=== PATIENT | female | born 1980 ===

== ENCOUNTER 2017-06-15 19:04 | Inpatient (IN) | payer OTHER ==
[2017-06-15] MEDS ORDERED: Sodium Chloride 0.9% 1,000 ML IV STA (20:24)
--- NOTE | 2017-06-15 20:48 | ED PDOC ---
HPI: General Adult Time Seen by Provider: 06/15/17 19:53 Chief Complaint (Nursing): Flu-like Symptoms Chief Complaint (Provider): Flu-like symptoms History Per: Patient History/Exam Limitations: no limitations Onset/Duration Of Symptoms: Days (2 weeks. Fever x1 day) Current Symptoms Are (Timing): Still Present Severity: Mild Additional History Per: Patient Additional Complaint(s): 36 y/o female c/o fever for 1 day and cough, sinus congestion, generalized malaise, fatigue, and body aches for 2 weeks. Patient reports she has been feeling mild weakness for a few months. She then got a flu vaccine recently where the weakness became more severe that is associated with upper respiratory symptoms. Denies pain, SOB, swelling, or recent travel. (+) sick contact. PMD: [place] Past Medical History Reviewed: Historical Data, Nursing Documentation, Vital Signs Vital Signs: Last Vital Signs Temp 97.4 F L 06/18/17 08:00 Pulse 82 06/18/17 08:00 Resp 18 06/18/17 08:00 BP 110/77 06/18/17 08:00 Pulse Ox 98 06/18/17 08:00 - Surgical History Other surgeries: Surgical abdominal hernia. Finger tendon repair. cystocele repair. - Family History Family History: States: Unknown Family Hx - Home Medications Home Medications: Ambulatory Orders Medication Instructions Recorded Nitrofurantoin Macrocrystals 100 mg PO BID #20 cap 06/18/17 [Macrobid] Nitrofurantoin Macrocrystals 100 mg PO BID #20 cap 06/18/17 [Macrobid] Tamsulosin [Flomax] 0.4 mg PO DAILY #7 cap 06/18/17 Tamsulosin [Flomax] 0.4 mg PO DAILY #7 cap 06/18/17 - Allergies Allergies/Adverse Reactions: Allergies Allergy/AdvReac Type Severity Reaction Status Date / Time sulfamethoxazole Allergy RASH Verified 06/15/17 19:42 [From Bactrim] trimethoprim [From Bactrim] Allergy RASH Verified 06/15/17 19:42 Review of Systems ROS Statement: Except As Marked, All Systems Reviewed And Found Negative Constitutional: Positive for: Fever, Weakness, Malaise, Other (Body aches. No Pain) ENT: Positive for: Nose Congestion Respiratory: Positive for: Cough. Negative for: Shortness of Breath Physical Exam - Reviewed Nursing Documentation Reviewed: Yes Vital Signs Reviewed: Yes - Physical Exam Appears: Positive for: No Acute Distress (but tired appearing and febrile) Head Exam: Positive for: ATRAUMATIC, NORMOCEPHALIC Skin: Positive for: Warm, Dry Eye Exam: Positive for: EOMI, PERRL ENT: Negative for: Pharyngeal Erythema, Tonsillar Exudate Neck: Positive for: Painless ROM, Supple Cardiovascular/Chest: Positive for: Regular Rate, Rhythm, Chest Non Tender. Negative for: Murmur Respiratory: Positive for: Normal Breath Sounds. Negative for: Wheezing, Respiratory Distress Gastrointestinal/Abdominal: Positive for: Bowel Sounds, Soft. Negative for: Tenderness, Mass, Distended, Guarding Back: Positive for: Normal Inspection. Negative for: L CVA Tenderness, R CVA Tenderness Extremity: Positive for: Normal ROM. Negative for: Deformity Lymphatic: Negative for: Adenopathy Neurologic/Psych: Positive for: Alert. Negative for: Motor/Sensory Deficits - Laboratory Results Result Diagrams: 06/18/17 05:10 06/18/17 05:10 - ECG O2 Sat by Pulse Oximetry: 100 (RA) Pulse Ox Interpretation: Normal Medical Decision Making Medical Decision Making: Impression: * fever and weakness Plans: * Blood labs * CXR * Tylenol * Toradol * IV fluids * Serology * UA DDx: * Influenza vs Pneumonia vs [place] vs viral illness vs dehydration vs Pyelonephritis Labd demonstrate leukocytosis, elevated transaminases, and UA c/w UTI. Given pt has signs of early sepsis, UTI has likely progressed to pyelonephritis. Will CT for further evaluation and hospitalize for sepsis and pyelonephritis. MARGIE pt findings and plan of care. MARGIE Sarmiento COMPUTER SUPPORT TECHNICIAN for [facility]. Scribe Attestation: Documented by Nirmala wells, acting as a scribe for Hope Ng MD Provider Scribe Attestation: All medical record entries made by the Scribe were at my direction and personally dictated by me. I have reviewed the chart and agree that the record accurately reflects my personal performance of the history, physical exam, medical decision making, and the department course for this patient. I have also personally directed, reviewed, and agree with the discharge instructions and disposition. Disposition - Clinical Impression Clinical Impression: Pyelonephritis, Sepsis Counseled Patient/Family Regarding: Studies Performed, Diagnosis - Disposition Disposition Time: 22:00 Condition: FAIR - Pt Status Changed To: Hospital Disposition Of: Observation - POA Present On Arrival: None
[2017-06-15 20:56] LABS: VENOUS BLOOD GAS PCO2 32 mmHg (40-60); VENOUS BLOOD PH 7.51 (7.32-7.43)
[2017-06-15 21:09] LABS: BASO % 0.4 % (0.0-2.0); EOS % 0.4 % (0.0-4.0); HEMATOCRIT 32.1 % (34.0-47.0); LYMPH # 1.3 K/uL (1.0-4.3); LYMPH % 10.7 % (20.0-40.0); MEAN CELL VOLUME 92.7 fl (81.0-99.0); MEAN CORPUSCULAR HEMOGLOBIN 30.9 pg (27.0-31.0); MEAN CORPUSCULAR HGB CONC 33.4 g/dL (33.0-37.0); MEAN PLATELET VOLUME 9.8 fl (7.2-11.7); MONO # 0.8 K/uL (0.0-0.8); MONO % 6.8 % (0.0-10.0); NEUT # 9.9 K/uL (1.8-7.0); NEUT % 81.7 % (50.0-75.0); RED CELL DISTRIBUTION WIDTH 14.6 % (11.5-14.5); WHITE BLOOD COUNT 12.1 K/uL (4.8-10.8)
[2017-06-15 21:16] LABS: PARTIAL THROMBOPLASTIN TIME 30.4 Seconds (25.6-37.1)
[2017-06-15 21:22] LABS: ALB/GLOB RATIO 0.9 (1.0-2.1); ALKALINE PHOSPHATASE 317 U/L (38-126); ALT/SGPT 274 U/L (9-52); AST/SGOT 237 U/L (14-36); BILIRUBIN,TOTAL 0.9 mg/dl (0.2-1.3); BLOOD UREA NITROGEN 13 mg/dl (7-17); CALCIUM 9.4 mg/dL (8.4-10.2); CARBON DIOXIDE 25 mmol/L (22-30); CHLORIDE 96 mmol/L (98-107); GFR AFRICAN-AMERICAN > 60; GLUCOSE,RANDOM 127 mg/dL (65-105); MAGNESIUM 2.3 MG/DL (1.6-2.3); PHOSPHOROUS 1.9 mg/dl (2.5-4.5); POTASSIUM 3.4 MMOL/L (3.6-5.0); SODIUM 132 mmol/l (132-148); TOTAL PROTEIN 7.8 G/DL (6.3-8.2)
[2017-06-15 21:35] LABS: RBC URINE 15 /hpf (0-3); URINE BACTERIA MANY (<OCC); URINE BILIRUBIN NEGATIVE (NEGATIVE); URINE BLOOD MODERATE (NEGATIVE); URINE COLOR AMBER (YELLOW); URINE GLUCOSE (UA) NEG (Normal); URINE KETONE NEGATIVE (NEGATIVE); URINE LEUKOCYTE ESTERASE LARGE Leu/uL (Negative); URINE PROTEIN 30 mg/dL (NEGATIVE); WBC URINE 100 /hpf (0-5)
[2017-06-15] MEDS ORDERED: cefTRIAXone IV 1 gm in Dextros 50 ML IVPB STA (21:53)
[2017-06-15] MEDS ORDERED: cefTRIAXone IV 1 gm in Dextros 50 ML IVPB ONE (22:27)
[2017-06-15] MEDS: Sodium Chloride 0.9% 1,000 ML IV SCH (23:53)
[2017-06-16] MEDS: Sodium Chloride 0.9% 1,000 ML IV SCH ×4 (06:09→21:41)
[2017-06-16 07:26] LABS: BASO # 0.1 K/uL (0.0-0.2); BASO % 0.4 % (0.0-2.0); EOS % 0.2 % (0.0-4.0); HEMATOCRIT 31.4 % (34.0-47.0); LYMPH % 6.9 % (20.0-40.0); MEAN CELL VOLUME 92.1 fl (81.0-99.0); MEAN CORPUSCULAR HEMOGLOBIN 30.5 pg (27.0-31.0); MEAN CORPUSCULAR HGB CONC 33.2 g/dL (33.0-37.0); MEAN PLATELET VOLUME 10.1 fl (7.2-11.7); MONO % 6.9 % (0.0-10.0); NEUT # 12.3 K/uL (1.8-7.0); NEUT % 85.6 % (50.0-75.0); PLATELET COUNT 423 K/uL (130-400); RED CELL DISTRIBUTION WIDTH 15.3 % (11.5-14.5); WHITE BLOOD COUNT 14.4 K/uL (4.8-10.8)
[2017-06-16 07:35] LABS: ALB/GLOB RATIO 0.9 (1.0-2.1); ALKALINE PHOSPHATASE 280 U/L (38-126); ALT/SGPT 216 U/L (9-52); AST/SGOT 129 U/L (14-36); BILIRUBIN,TOTAL 1.2 mg/dl (0.2-1.3); BLOOD UREA NITROGEN 8 mg/dl (7-17); CARBON DIOXIDE 23 mmol/L (22-30); CHLORIDE 104 mmol/L (98-107); GFR AFRICAN-AMERICAN > 60; GLUCOSE,RANDOM 107 mg/dL (65-105); POTASSIUM 3.4 MMOL/L (3.6-5.0); SODIUM 137 mmol/l (132-148); TOTAL PROTEIN 7.1 G/DL (6.3-8.2)
[2017-06-16] MEDS ORDERED: Potassium Chloride 20 mEq ER Tab PO ONE (08:45)
--- NOTE | 2017-06-16 10:28 | CP.PCM.HP ---
History of Present Illness - History of Present Illness History of Present Illness: pt admitted for pyelonephritis and elevated lft. had flank pain x 2 wks fever x 1 day. has hx of uti. bw and ua noted. all c/s npending . pt w/ fever this am but no n/v/d. edson po. consults-uro/gi pending. hepatitis panel pending Present on Admission - Present on Admission Any Indicators Present on Admission: No Review of Systems - Constitutional Constitutional: As Per HPI, Fever - Genitourinary Genitourinary: As Per HPI, Dysuria, Flank Pain Past Patient History - Past Medical History & Family History Past Medical History?: Yes - Past Social History Smoking Status: Heavy Smoker > 10 Cigarettes Daily - CARDIAC Hx Cardiac Disorders: No - PULMONARY Hx Respiratory Disorders: No Other/Comment: current smoker, 1 pack a day. refuses smoking cessation - NEUROLOGICAL Hx Neurological Disorder: No - HEENT Hx HEENT Problems: No - RENAL Hx Chronic Kidney Disease: No - ENDOCRINE/METABOLIC Hx Endocrine Disorders: No - HEMATOLOGICAL/ONCOLOGICAL Hx Blood Disorders: No Hx AIDS: No Hx Hepatitis C: No Hx Human Immunodeficiency Virus (HIV): No - INTEGUMENTARY Hx Dermatological Problems: No - MUSCULOSKELETAL/RHEUMATOLOGICAL Hx Musculoskeletal Disorders: No Hx Falls: No - GASTROINTESTINAL Hx Gastrointestinal Disorders: No - GENITOURINARY/GYNECOLOGICAL Hx Genitourinary Disorders: Yes Hx Urinary Tract Infection: Yes - PSYCHIATRIC Hx Psychophysiologic Disorder: Yes Hx Anxiety: Yes (denies taking any home meds for anxiety) Hx Substance Use: No - SURGICAL HISTORY Hx Surgeries: Yes Hx Herniorrhaphy: Yes (October 2016) Hx Musculoskeletal Surgery: Yes (Pinky tendon repair to 2015) Other/Comment: cystocele repair due to reurring UTI 2011 - ANESTHESIA Hx Anesthesia: Yes Hx Anesthesia Reactions: No Meds Allergies/Adverse Reactions: Allergies Allergy/AdvReac Type Severity Reaction Status Date / Time sulfamethoxazole Allergy RASH Verified 06/15/17 19:42 [From Bactrim] trimethoprim [From Bactrim] Allergy RASH Verified 06/15/17 19:42 Physical Exam - Constitutional Appears: Well, Non-toxic, No Acute Distress - Head Exam Head Exam: ATRAUMATIC, NORMAL INSPECTION, NORMOCEPHALIC - Eye Exam Eye Exam: EOMI, Normal appearance, PERRL Pupil Exam: NORMAL ACCOMODATION, PERRL - ENT Exam ENT Exam: Mucous Membranes Moist, Normal Exam - Neck Exam Neck exam: Positive for: Normal Inspection - Respiratory Exam Respiratory Exam: Clear to Auscultation Bilateral, NORMAL BREATHING PATTERN - Cardiovascular Exam Cardiovascular Exam: REGULAR RHYTHM, RRR, +S1, +S2 - GI/Abdominal Exam GI & Abdominal Exam: Normal Bowel Sounds, Soft. absent: Tenderness - Extremities Exam Extremities exam: Positive for: full ROM, normal capillary refill, normal inspection, pedal pulses present - Back Exam Back exam: NORMAL INSPECTION - Neurological Exam Neurological exam: Alert, CN II-XII Intact, Normal Gait, Oriented x3, Reflexes Normal - Psychiatric Exam Psychiatric exam: Normal Affect, Normal Mood - Skin Skin Exam: Dry, Intact, Normal Color, Warm Results - Vital Signs Recent Vital Signs: Last Vital Signs Temp 102.9 F H 06/16/17 08:59 Pulse 104 H 06/16/17 08:51 Resp 20 06/16/17 08:51 BP 106/62 06/16/17 08:51 Pulse Ox 96 06/16/17 08:51 - Labs Result Diagrams: 06/16/17 05:30 06/16/17 05:30 Labs: Laboratory Results - last 24 hr 06/15/17 06/15/17 06/15/17 20:45 20:53 21:01 WBC 12.1 H RBC 3.47 L Hgb 10.7 L Hct 32.1 L MCV 92.7 MCH 30.9 MCHC 33.4 RDW 14.6 H Plt Count 415 H MPV 9.8 Neut % (Auto) 81.7 H Lymph % (Auto) 10.7 L [place] % (Auto) 6.8 Eos % (Auto) 0.4 Baso % (Auto) 0.4 Neut # 9.9 H Lymph # 1.3 [place] # 0.8 Eos # 0.0 Baso # 0.0 PT INR APTT pO2 25 L VBG pH 7.51 H VBG pCO2 32 L VBG HCO3 26.1 VBG Total CO2 26.5 VBG O2 Sat (Calc) 58.3 VBG Base Excess 3.0 H VBG Potassium 3.4 L Sodium 130.0 L Chloride 98.0 Glucose 134 H Lactate 1.1 FiO2 21.0 Potassium Carbon Dioxide Anion Gap BUN Creatinine Est GFR ( Amer) Est GFR (Non-Af Amer) Random Glucose Calcium Phosphorus Magnesium Total Bilirubin AST ALT Alkaline Phosphatase Total Creatine Kinase Total Protein Albumin Globulin Albumin/Globulin Ratio Venous Blood Potassium 3.4 L Urine Color Urine Clarity Urine pH Ur Specific [place] Urine Protein Urine Glucose (UA) Urine Ketones Urine Blood Urine Nitrate Urine Bilirubin Urine Urobilinogen Ur Leukocyte Esterase Urine RBC (Auto) Urine Microscopic WBC Ur Squamous Epith Cells Urine Bacteria Urine Yeast (Budding) Infectious [place] Assay Influenza Typ A,B (EIA) Grp A Beta Strep Ag Blood Type A POSITIVE Antibody Screen Negative BBK History Checked Patient has bt 06/15/17 06/15/17 06/15/17 21:01 21:01 21:01 WBC RBC Hgb Hct MCV MCH MCHC RDW Plt Count MPV Neut % (Auto) Lymph % (Auto) [place] % (Auto) Eos % (Auto) Baso % (Auto) Neut # Lymph # [place] # Eos # Baso # PT INR APTT pO2 VBG pH VBG pCO2 VBG HCO3 VBG Total CO2 VBG O2 Sat (Calc) VBG Base Excess VBG Potassium Sodium 132 Chloride 96 L Glucose Lactate FiO2 Potassium 3.4 L Carbon Dioxide 25 Anion Gap 14 BUN 13 Creatinine 0.8 Est GFR ( Amer) > 60 Est GFR (Non-Af Amer) > 60 Random Glucose 127 H Calcium 9.4 Phosphorus 1.9 L Magnesium 2.3 Total Bilirubin 0.9 AST 237 H ALT 274 H Alkaline Phosphatase 317 H Total Creatine Kinase 41 Total Protein 7.8 Albumin 3.7 Globulin 4.0 H Albumin/Globulin Ratio 0.9 L Venous Blood Potassium Urine Color Urine Clarity Urine pH Ur Specific [place] Urine Protein Urine Glucose (UA) Urine Ketones Urine Blood Urine Nitrate Urine Bilirubin Urine Urobilinogen Ur Leukocyte Esterase Urine RBC (Auto) Urine Microscopic WBC Ur Squamous Epith Cells Urine Bacteria Urine Yeast (Budding) Infectious [place] Assay Negative Influenza Typ A,B (EIA) Negative for flu a/b Grp A Beta Strep Ag Blood Type Antibody Screen BBK History Checked 06/15/17 06/15/17 06/15/17 21:01 21:01 21:01 WBC RBC Hgb Hct MCV MCH MCHC RDW Plt Count MPV Neut % (Auto) Lymph % (Auto) [place] % (Auto) Eos % (Auto) Baso % (Auto) Neut # Lymph # [place] # Eos # Baso # PT 14.6 H INR 1.3 H APTT 30.4 pO2 VBG pH VBG pCO2 VBG HCO3 VBG Total CO2 VBG O2 Sat (Calc) VBG Base Excess VBG Potassium Sodium Chloride Glucose Lactate FiO2 Potassium Carbon Dioxide Anion Gap BUN Creatinine Est GFR ( Amer) Est GFR (Non-Af Amer) Random Glucose Calcium Phosphorus Magnesium Total Bilirubin AST ALT Alkaline Phosphatase Total Creatine Kinase Total Protein Albumin Globulin Albumin/Globulin Ratio Venous Blood Potassium Urine Color [place] Urine Clarity Cloudy Urine pH 6.0 Ur Specific [place] 1.015 Urine Protein 30 Urine Glucose (UA) Neg Urine Ketones Negative Urine Blood Moderate Urine Nitrate Positive H Urine Bilirubin Negative Urine Urobilinogen 4.0 H Ur Leukocyte Esterase Large Urine RBC (Auto) 15 H Urine Microscopic WBC 100 H Ur Squamous Epith Cells 4 Urine Bacteria Many H Urine Yeast (Budding) Occ H Infectious [place] Assay Influenza Typ A,B (EIA) Grp A Beta Strep Ag Negative Blood Type Antibody Screen BBK History Checked 06/16/17 06/16/17 05:30 05:30 WBC 14.4 H RBC 3.41 L Hgb 10.4 L Hct 31.4 L MCV 92.1 MCH 30.5 MCHC 33.2 RDW 15.3 H Plt Count 423 H MPV 10.1 Neut % (Auto) 85.6 H Lymph % (Auto) 6.9 L [place] % (Auto) 6.9 Eos % (Auto) 0.2 Baso % (Auto) 0.4 Neut # 12.3 H Lymph # 1.0 [place] # 1.0 H Eos # 0.0 Baso # 0.1 PT INR APTT pO2 VBG pH VBG pCO2 VBG HCO3 VBG Total CO2 VBG O2 Sat (Calc) VBG Base Excess VBG Potassium Sodium 137 Chloride 104 Glucose Lactate FiO2 Potassium 3.4 L Carbon Dioxide 23 Anion Gap 13 BUN 8 Creatinine 0.8 Est GFR ( Amer) > 60 Est GFR (Non-Af Amer) > 60 Random Glucose 107 H Calcium 9.0 Phosphorus Magnesium Total Bilirubin 1.2 AST 129 H D ALT 216 H D Alkaline Phosphatase 280 H Total Creatine Kinase Total Protein 7.1 Albumin 3.4 L Globulin 3.7 Albumin/Globulin Ratio 0.9 L Venous Blood Potassium Urine Color Urine Clarity Urine pH Ur Specific [place] Urine Protein Urine Glucose (UA) Urine Ketones Urine Blood Urine Nitrate Urine Bilirubin Urine Urobilinogen Ur Leukocyte Esterase Urine RBC (Auto) Urine Microscopic WBC Ur Squamous Epith Cells Urine Bacteria Urine Yeast (Budding) Infectious [place] Assay Influenza Typ A,B (EIA) Grp A Beta Strep Ag Blood Type Antibody Screen BBK History Checked Assessment & Plan (1) Elevated LFTs Assessment and Plan: hepatitis panel pending gi ivf Status: Acute (2) DVT prophylaxis Assessment and Plan: scd and ae hose ambulation Status: Acute (3) Pyelonephritis Assessment and Plan: rocephin likely r/t pbstructing stone uro ivf pain and nausea control fever control f/u c/s Status: Acute (4) Sepsis Assessment and Plan: likey r/t urine source f/u blood nad urine c/s ivf mild sepsis Status: Acute Decision To Admit - Pt Status Changed To: Hospital Disposition Of: Observation - . Bed Request Type: Med/Surg Admitting Physician: Williams Bañuelos
[2017-06-16 10:39] LABS: EOSINOPHIL 1 % (0-7); NEUTROPHIL 85 % (42-75); TOTAL CELLS COUNTED 100
[2017-06-16 10:40] LABS: LARGE PLATELETS PRESENT
--- NOTE | 2017-06-16 13:23 | RAD ---
HISTORY: cough fever COMPARISON: No prior. TECHNIQUE: Chest PA and lateral FINDINGS: LUNGS: No active pulmonary disease. PLEURA: No significant pleural effusion identified. No pneumothorax apparent. CARDIOVASCULAR: Normal. OSSEOUS STRUCTURES: No significant abnormalities. VISUALIZED UPPER ABDOMEN: Normal. OTHER FINDINGS: None. IMPRESSION: No active disease.
--- NOTE | 2017-06-16 13:29 | CP.PCM.PN ---
Subjective - Date & Time of Evaluation Date of Evaluation: 06/16/17 Time of Evaluation: 13:15 - Subjective Subjective: 36 year old female who presented with clinical pylonephritis,who is on antibiotics and afrible was found to have small Bilat renal calculi on CT with out evidence of hydro. no cva tenderness A.Pylonephritis,Suggest Continue antibiotics,adjust as per sensitivies,pt should have outpatient evall for lithotrpsy Thanks Dr aragon covering for DrCacace. Objective - Vital Signs/Intake and Output Vital Signs (last 24 hours): Temp Pulse Resp BP Pulse Ox 102.9 F H 104 H 20 106/62 96 06/16/17 08:59 06/16/17 08:51 06/16/17 08:51 06/16/17 08:51 06/16/17 08:51 - Medications Medications: Current Medications Acetaminophen (Tylenol 325mg Tab) 650 mg PO Q4 PRN PRN Reason: fever/pain 4-7 Last Admin: 06/16/17 08:59 Dose: 650 mg Sodium Chloride (Sodium Chloride 0.9%) 1,000 mls @ 150 mls/hr IV .Q6H40M LYLE Stop: 06/16/17 22:32 Last Admin: 06/16/17 06:09 Dose: 150 mls/hr Ceftriaxone Sodium (Rocephin Iv 1 Gm Duplex) 50 mls @ 50 mls/hr IVPB DAILY@ 2200 LYLE PRN Reason: Protocol Ketorolac Tromethamine (Toradol) 30 mg IVP Q6 PRN PRN Reason: Pain, severe (8-10) Ondansetron HCl (Zofran Inj) 4 mg IVP Q6 PRN PRN Reason: Nausea/Vomiting - Labs Labs: 06/16/17 05:30 06/16/17 05:30 PT 14.6 Seconds (9.8-13.1) H 06/15/17 21:01 INR 1.3 (0.9-1.2) H 06/15/17 21:01 APTT 30.4 Seconds (25.6-37.1) 06/15/17 21:01
--- NOTE | 2017-06-16 14:12 | CT ---
PROCEDURE: CT Abdomen and Pelvis without intravenous contrast HISTORY: pyelonephritis COMPARISON: None. TECHNIQUE: Technique. Contrast Dose: Radiation dose: Total exam DLP = 1047 mGy-cm. This CT exam was performed using one or more of the following dose reduction techniques: Automated exposure control, adjustment of the mA and/or kV according to patient size, and/or use of iterative reconstruction technique. FINDINGS: LOWER THORAX: Unremarkable. LIVER: Unremarkable. No gross lesion or ductal dilatation. GALLBLADDER AND BILE DUCTS: Unremarkable. PANCREAS: Unremarkable. No gross lesion or ductal dilatation. SPLEEN: Unremarkable. ADRENALS: Unremarkable. No mass. KIDNEYS AND URETERS: 3 millimeter proximal left ureteral calculus with mild to moderate left hydroureteronephrosis. Bilateral small nonobstructive renal calculi. VASCULATURE: Unremarkable. No aortic aneurysm. BOWEL: Unremarkable. No obstruction. No gross mural thickening. APPENDIX: Unremarkable. Normal appendix. PERITONEUM: Unremarkable. No free fluid. No free air. LYMPH NODES: Multiple nonspecific retroperitoneal lymph nodes are identified. BLADDER: Unremarkable. REPRODUCTIVE: Unremarkable. BONES: No acute fracture. OTHER FINDINGS: None. IMPRESSION: 3 millimeter proximal left ureteral calculus with mild to moderate left hydroureteronephrosis. Bilateral small nonobstructive renal calculi.Multiple nonspecific mildly enlarged retroperitoneal lymph nodes are identified.
[2017-06-16] MEDS: cefTRIAXone IV 1 gm in Dextros 50 ML IVPB SCH (21:28)
--- NOTE | 2017-06-17 05:17 | CON ---
DATE: 06/16/2017 REFERRED BY: Dr. Bañuelos the patient for him. HISTORY OF PRESENT ILLNESS: This is a very pleasant 36-year-old young lady who was admitted yesterday with a 2-week history of fever, chills, and generalized malaise and fatigue, who has been treated apparently for urinary source of infection, who was incidentally also found to have elevated hepatic enzymes. Patient denies any risk factors for liver disease, having never received a blood transfusion. Denies any drug use in the past other than smoking marijuana occasionally. She does have one tattoo, she says it was done with a clean blade and she has not been promiscuous. She has no known history of liver disease, but states that she had an ultrasound done recently as she does work at [employer], it reveals she had a fatty liver. MEDICATIONS: She was on no medications at home. ALLERGIES: NO KNOWN DRUG ALLERGIES. PAST MEDICAL HISTORY: Essentially unremarkable. PAST SURGICAL HISTORY: She had one vaginal delivery. She had a small ventral hernia repair back in 10/2016. She also had some small surgery on her right hand on the pinky finger. FAMILY HISTORY: According to her and her mom, who was present, there is no history of liver disease. SOCIAL HISTORY: She does smoke up to a pack a day of cigarettes. She does have some alcohol, although the last couple of weeks, she has not been drinking because she had been feeling ill and denies any drug use. She is employed at [employer]. PHYSICAL EXAMINATION: GENERAL: Well-developed, well-nourished, black woman, awake, alert, and oriented x3, in no acute distress. States she feels better today than she did upon admission yesterday. VITAL SIGNS: Presently stable, although she was febrile at 08:51 this morning to 102.9. LABORATORY DATA: Her white count yesterday was 12.1, today it is up to 14.4; hemoglobin is stable at 10.4, albeit slightly anemic with a platelet count of 423. She has neutrophils of 85.6. INR is 1.3. SMA-7 is unremarkable. Her LFTs; bilirubin has been normal. Her AST yesterday was 237, today it is 129. Her ALT was 274, it is down to 216. Alk phos was 317, today it is 280. Other LFTs are unremarkable. IMPRESSION AND PLAN: A 36-year-old overweight woman who is referred with abnormal LFTs, probably multifactorial, so she has an element of underlying fatty liver disease which is causing elevation of her hepatic enzymes. She also has an acute infection going on most likely of urinary tract source and that certainly can cause an elevation in the enzymes, although they have improved as she has clinically in the last 24 hours. Certainly, a viral syndrome can cause this as well and a hepatitis panel has been ordered. We will await for those results. In the meantime, we will simply follow up on her CAT scan that was done as well repeat her GGT along with the LFTs tomorrow and I will follow along with you. Thank you very much for this referral. Weston Sawyer MD
[2017-06-17] MEDS: Sodium Chloride 0.9% 1,000 ML IV SCH (05:46)
[2017-06-17 06:52] LABS: BASO % 0.3 % (0.0-2.0); EOS # 0.1 K/uL (0.0-0.7); EOS % 0.6 % (0.0-4.0); HEMATOCRIT 28.9 % (34.0-47.0); LYMPH # 1.5 K/uL (1.0-4.3); LYMPH % 12.6 % (20.0-40.0); MEAN CELL VOLUME 94.1 fl (81.0-99.0); MEAN CORPUSCULAR HEMOGLOBIN 30.5 pg (27.0-31.0); MEAN CORPUSCULAR HGB CONC 32.4 g/dL (33.0-37.0); MEAN PLATELET VOLUME 10.2 fl (7.2-11.7); MONO # 0.9 K/uL (0.0-0.8); MONO % 7.2 % (0.0-10.0); NEUT # 9.5 K/uL (1.8-7.0); NEUT % 79.3 % (50.0-75.0); RED CELL DISTRIBUTION WIDTH 15.2 % (11.5-14.5)
[2017-06-17 07:02] LABS: ALB/GLOB RATIO 0.9 (1.0-2.1); ALKALINE PHOSPHATASE 202 U/L (38-126); ALT/SGPT 143 U/L (9-52); AST/SGOT 57 U/L (14-36); BILIRUBIN,TOTAL 0.3 mg/dl (0.2-1.3); BLOOD UREA NITROGEN 5 mg/dl (7-17); CALCIUM 8.8 mg/dL (8.4-10.2); CARBON DIOXIDE 22 mmol/L (22-30); CHLORIDE 108 mmol/L (98-107); GFR AFRICAN-AMERICAN > 60; GLUCOSE,RANDOM 96 mg/dL (65-105); LIPASE 88 U/L (23-300); POTASSIUM 3.5 MMOL/L (3.6-5.0); SODIUM 139 mmol/l (132-148); TOTAL PROTEIN 6.3 G/DL (6.3-8.2)
[2017-06-17] MEDS ORDERED: Potassium Chloride 20 mEq ER Tab PO ONE (09:30)
--- NOTE | 2017-06-17 10:36 | CP.PCM.PN ---
Subjective - Date & Time of Evaluation Date of Evaluation: 06/17/17 Time of Evaluation: 10:28 - Subjective Subjective: Patient Remains afibrile ct report indicates 3mm proxinal ureteral calculi,with some hydro. Urine c&s + wbc has decreased. Suggest continue antibiotics, add flomax to facilate passage of stone strain all urine for stone. Alyse Objective - Vital Signs/Intake and Output Vital Signs (last 24 hours): Temp Pulse Resp BP Pulse Ox 99 F 81 20 109/70 96 06/17/17 08:24 06/17/17 08:24 06/17/17 08:24 06/17/17 08:24 06/17/17 08:24 - Medications Medications: Current Medications Acetaminophen (Tylenol 325mg Tab) 650 mg PO Q4 PRN PRN Reason: fever/pain 4-7 Last Admin: 06/16/17 16:01 Dose: 650 mg Ceftriaxone Sodium (Rocephin Iv 1 Gm Duplex) 50 mls @ 50 mls/hr IVPB DAILY@ 2200 LYLE PRN Reason: Protocol Last Admin: 06/16/17 21:28 Dose: 50 mls/hr Ketorolac Tromethamine (Toradol) 30 mg IVP Q6 PRN PRN Reason: Pain, severe (8-10) Ondansetron HCl (Zofran Inj) 4 mg IVP Q6 PRN PRN Reason: Nausea/Vomiting - Labs Labs: 06/17/17 05:30 06/17/17 05:30 PT 14.6 Seconds (9.8-13.1) H 06/15/17 21:01 INR 1.3 (0.9-1.2) H 06/15/17 21:01 APTT 30.4 Seconds (25.6-37.1) 06/15/17 21:01
--- NOTE | 2017-06-17 11:28 | CP.PCM.PN ---
Subjective - Date & Time of Evaluation Date of Evaluation: 06/17/17 Time of Evaluation: 11:28 - Subjective Subjective: doing well, no complaints. no f/c, n/v/d. edson po. lft trending down per uro-dc tomorrrow after urine c/s finalized. Objective - Vital Signs/Intake and Output Vital Signs (last 24 hours): Temp Pulse Resp BP Pulse Ox 99 F 81 20 109/70 96 06/17/17 08:24 06/17/17 08:24 06/17/17 08:24 06/17/17 08:24 06/17/17 08:24 - Medications Medications: Current Medications Acetaminophen (Tylenol 325mg Tab) 650 mg PO Q4 PRN PRN Reason: fever/pain 4-7 Last Admin: 06/16/17 16:01 Dose: 650 mg Ceftriaxone Sodium (Rocephin Iv 1 Gm Duplex) 50 mls @ 50 mls/hr IVPB DAILY@ 2200 LYLE PRN Reason: Protocol Last Admin: 06/16/17 21:28 Dose: 50 mls/hr Ketorolac Tromethamine (Toradol) 30 mg IVP Q6 PRN PRN Reason: Pain, severe (8-10) Ondansetron HCl (Zofran Inj) 4 mg IVP Q6 PRN PRN Reason: Nausea/Vomiting Tamsulosin HCl (Flomax) 0.4 mg PO DAILY [facility] - Labs Labs: 06/17/17 05:30 06/17/17 05:30 PT 14.6 Seconds (9.8-13.1) H 06/15/17 21:01 INR 1.3 (0.9-1.2) H 06/15/17 21:01 APTT 30.4 Seconds (25.6-37.1) 06/15/17 21:01 - Constitutional Appears: Well, Non-toxic, No Acute Distress - Head Exam Head Exam: ATRAUMATIC, NORMAL INSPECTION, NORMOCEPHALIC - Eye Exam Eye Exam: EOMI, Normal appearance, PERRL Pupil Exam: NORMAL ACCOMODATION, PERRL - ENT Exam ENT Exam: Mucous Membranes Moist, Normal Exam - Neck Exam Neck Exam: Full ROM, Normal Inspection. absent: Lymphadenopathy - Respiratory Exam Respiratory Exam: Clear to Ausculation Bilateral, NORMAL BREATHING PATTERN - Cardiovascular Exam Cardiovascular Exam: REGULAR RHYTHM, RRR, +S1, +S2. absent: Murmur - GI/Abdominal Exam GI & Abdominal Exam: Soft, Normal Bowel Sounds. absent: Tenderness - Extremities Exam Extremities Exam: Full ROM, Normal Capillary Refill, Normal Inspection. absent : Joint Swelling, Pedal Edema - Back Exam Back Exam: NORMAL INSPECTION - Neurological Exam Neurological Exam: Alert, Awake, CN II-XII Intact, Normal Gait, Oriented x3 - Psychiatric Exam Psychiatric exam: Normal Affect, Normal Mood - Skin Skin Exam: Dry, Intact, Normal Color, Warm Assessment and Plan (1) Elevated LFTs Assessment & Plan: trending down gi hep panel pending cont to monitor hydration Status: Acute (2) DVT prophylaxis Assessment & Plan: scd nad ae hose ambulation Status: Acute (3) Pyelonephritis Assessment & Plan: rocephin f/u c/s uro ivf fever and pain control Status: Acute (4) Sepsis Assessment & Plan: doing well, improving bc thus far negative Status: Acute
[2017-06-17] MEDS: cefTRIAXone IV 1 gm in Dextros 50 ML IVPB SCH (21:40)
--- NOTE | 2017-06-17 22:46 | CP.PCM.PN ---
Subjective - Date & Time of Evaluation Date of Evaluation: 06/17/17 Time of Evaluation: 22:43 - Subjective Subjective: Discussed with hira hartman,pt should remain present antibiotics untill sensitivites are known. If there is a oral sensitive antibiotics pt may be switched and if afribile and asymtomatic discharged on po antibiotica and flomax ,and follow up in our officce sunday by apptAzael Cullen Objective - Vital Signs/Intake and Output Vital Signs (last 24 hours): Temp Pulse Resp BP Pulse Ox 98.4 F 81 19 116/67 98 06/17/17 16:21 06/17/17 16:21 06/17/17 16:21 06/17/17 16:21 06/17/17 16:21 - Medications Medications: Current Medications Acetaminophen (Tylenol 325mg Tab) 650 mg PO Q4 PRN PRN Reason: fever/pain 4-7 Last Admin: 06/16/17 16:01 Dose: 650 mg Ceftriaxone Sodium (Rocephin Iv 1 Gm Duplex) 50 mls @ 50 mls/hr IVPB DAILY@ 2200 LYLE PRN Reason: Protocol Last Admin: 06/17/17 21:40 Dose: 50 mls/hr Ketorolac Tromethamine (Toradol) 30 mg IVP Q6 PRN PRN Reason: Pain, severe (8-10) Ondansetron HCl (Zofran Inj) 4 mg IVP Q6 PRN PRN Reason: Nausea/Vomiting Tamsulosin HCl (Flomax) 0.4 mg PO DAILY [facility] Last Admin: 06/17/17 16:47 Dose: 0.4 mg - Labs Labs: 06/17/17 05:30 06/17/17 05:30 PT 14.6 Seconds (9.8-13.1) H 06/15/17 21:01 INR 1.3 (0.9-1.2) H 06/15/17 21:01 APTT 30.4 Seconds (25.6-37.1) 06/15/17 21:01
--- NOTE | 2017-06-18 02:29 | CON ---
DATE: 06/15/2017 CHIEF COMPLAINT: Fever and malaise. HISTORY OF PRESENT ILLNESS: The patient was admitted to the hospital because of a week of malaise, fever and feeling bad. She was worked up and found to have a positive urinalysis and fever, subsequently the patient underwent CAT scan which shows bilateral renal calculi and a nonobstructing upper ureteral calculi 3-mm in size. The patient was then placed on IV antibiotics and has been improved. Presently, she is afebrile. White count has gone down from 14,000 to 12,000. REVIEW OF SYSTEMS: RESPIRATORY: The patient has no respiratory complaints. GASTROINTESTINAL: The patient has no nauseousness, vomiting or abdominal pain. GENITOURINARY: The patient gives a history of some dysuria and vague back pain with no significant renal colic or localization. NEUROLOGIC: History is noncontributory. MUSCULOSKELETAL: History is noncontributory. 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 She neither smokes or drinks. PHYSICAL EXAMINATION: VITAL SIGNS: Right now, the patient is afebrile. HEAD, EARS, EYES, NOSE, AND THROAT: Within normal limits. NECK: Supple. There is no bruits, no evidence of masses. CHEST: Clear bilaterally with no rales or rhonchi. HEART: Normal sinus rhythm. There is no murmur. ABDOMEN: Soft, nontender. There is no CVA tenderness or anterior abdominal tenderness. EXTREMITIES: Normal. VAGINAL EXAMINATION: Declined by the patient. RECTAL: Declined by the patient. NEUROLOGIC: Negative. IMPRESSION: Multiple renal calculi and single ureteral calculi 3 mm in size. Suggest the following: Since the patient has become afebrile with the antibiotics, suggest she should be started on Flomax 0.4 mg daily and have all her urine strained for stone. Once urine cultures are known, if there is an oral alternative, she maybe discharged on oral antibiotics if sensitivities indicate that these antibiotics would work. If not, she should remain on IV antibiotics until full 7-10 day course of medications has been completed. Urine should be strained for stone. The patient should follow up within one week in the Urology Office, and further evaluation to see if she has passed the stones should be carried out. We have conveyed these medications to the nurse practitioner, Guillermina. Flynn Cullen MD [facility] # [id number]
[2017-06-18 06:14] LABS: ALKALINE PHOSPHATASE 162 U/L (38-126); ALT/SGPT 145 U/L (9-52); AST/SGOT 72 U/L (14-36); BILIRUBIN,TOTAL 0.1 mg/dl (0.2-1.3); BLOOD UREA NITROGEN 5 mg/dl (7-17); CARBON DIOXIDE 24 mmol/L (22-30); CHLORIDE 111 mmol/L (98-107); GFR AFRICAN-AMERICAN > 60; GLUCOSE,RANDOM 99 mg/dL (65-105); POTASSIUM 3.6 MMOL/L (3.6-5.0); SODIUM 142 mmol/l (132-148); TOTAL PROTEIN 6.3 G/DL (6.3-8.2)
[2017-06-18 06:23] LABS: BASO % 0.3 % (0.0-2.0); EOS # 0.2 K/uL (0.0-0.7); EOS % 2.1 % (0.0-4.0); HEMATOCRIT 27.8 % (34.0-47.0); LYMPH # 1.6 K/uL (1.0-4.3); LYMPH % 22.8 % (20.0-40.0); MEAN CELL VOLUME 94.1 fl (81.0-99.0); MEAN CORPUSCULAR HEMOGLOBIN 30.5 pg (27.0-31.0); MEAN CORPUSCULAR HGB CONC 32.5 g/dL (33.0-37.0); MEAN PLATELET VOLUME 9.9 fl (7.2-11.7); MONO # 0.6 K/uL (0.0-0.8); NEUT # 4.8 K/uL (1.8-7.0); NEUT % 66.8 % (50.0-75.0); NRBC % 0.1 % (0.0-0.0); RED CELL DISTRIBUTION WIDTH 15.1 % (11.5-14.5); WHITE BLOOD COUNT 7.2 K/uL (4.8-10.8)
[2017-06-18 06:29] LABS: ALB/GLOB RATIO 0.9 (1.0-2.1)
--- NOTE | 2017-06-18 07:21 | CP.PCM.PN ---
Subjective - Date & Time of Evaluation Date of Evaluation: 06/18/17 Time of Evaluation: 07:20 - Subjective Subjective: pt w/o complaints. nof /c n/v/d. hep panel pending. final urine c/s pending. gram - rods noted. pt very anxious to be dc home. edson po Objective - Vital Signs/Intake and Output Vital Signs (last 24 hours): Temp Pulse Resp BP Pulse Ox 98 F 80 20 111/71 99 06/18/17 00:19 06/18/17 00:19 06/18/17 00:19 06/18/17 00:19 06/18/17 00:19 - Medications Medications: Current Medications Acetaminophen (Tylenol 325mg Tab) 650 mg PO Q4 PRN PRN Reason: fever/pain 4-7 Last Admin: 06/16/17 16:01 Dose: 650 mg Ceftriaxone Sodium (Rocephin Iv 1 Gm Duplex) 50 mls @ 50 mls/hr IVPB DAILY@ 2200 LYLE PRN Reason: Protocol Last Admin: 06/17/17 21:40 Dose: 50 mls/hr Ketorolac Tromethamine (Toradol) 30 mg IVP Q6 PRN PRN Reason: Pain, severe (8-10) Ondansetron HCl (Zofran Inj) 4 mg IVP Q6 PRN PRN Reason: Nausea/Vomiting Tamsulosin HCl (Flomax) 0.4 mg PO DAILY [facility] Last Admin: 06/17/17 16:47 Dose: 0.4 mg - Labs Labs: 06/18/17 05:10 06/18/17 05:10 PT 14.6 Seconds (9.8-13.1) H 06/15/17 21:01 INR 1.3 (0.9-1.2) H 06/15/17 21:01 APTT 30.4 Seconds (25.6-37.1) 06/15/17 21:01 - Constitutional Appears: Well, Non-toxic, No Acute Distress - Head Exam Head Exam: ATRAUMATIC, NORMAL INSPECTION, NORMOCEPHALIC - Eye Exam Eye Exam: EOMI, Normal appearance, PERRL Pupil Exam: NORMAL ACCOMODATION, PERRL - ENT Exam ENT Exam: Mucous Membranes Moist, Normal Exam - Neck Exam Neck Exam: Full ROM, Normal Inspection. absent: Lymphadenopathy - Respiratory Exam Respiratory Exam: Clear to Ausculation Bilateral, NORMAL BREATHING PATTERN - Cardiovascular Exam Cardiovascular Exam: REGULAR RHYTHM, RRR, +S1, +S2. absent: Murmur - GI/Abdominal Exam GI & Abdominal Exam: Soft, Normal Bowel Sounds. absent: Tenderness - Extremities Exam Extremities Exam: Full ROM, Normal Capillary Refill, Normal Inspection. absent : Joint Swelling, Pedal Edema - Back Exam Back Exam: NORMAL INSPECTION - Neurological Exam Neurological Exam: Alert, Awake, CN II-XII Intact, Normal Gait, Oriented x3 - Psychiatric Exam Psychiatric exam: Normal Affect, Normal Mood - Skin Skin Exam: Dry, Intact, Normal Color, Warm Assessment and Plan (1) Elevated LFTs Status: Acute (2) DVT prophylaxis Status: Acute (3) Pyelonephritis Status: Acute (4) Sepsis Status: Acute
[2017-06-18 08:02] VITALS: BP 110/77; PULSE 82; RESP 18; TEMP 97.4
--- NOTE | 2017-06-18 11:34 | CP.PCM.DIS ---
Provider - Provider Date of Admission: 06/16/17 19:35 Attending physician: Williams Bañuelos MD Time Spent in preparation of Discharge (in minutes): 5 Diagnosis - Discharge Diagnosis (1) Elevated LFTs Status: Acute (2) DVT prophylaxis Status: Acute (3) Pyelonephritis Status: Acute (4) Sepsis Status: Acute Hospital Course - Lab Results Lab Results: Micro Results 06/15/17 21:01 Urine Urine Culture - Final Escherichia Coli 06/15/17 20:45 Blood-Venous Blood Culture - Preliminary NO GROWTH AFTER 48 HOURS 06/15/17 20:55 Blood-Venous Blood Culture - Preliminary NO GROWTH AFTER 48 HOURS 06/15/17 21:01 Throat Group A Strep Throat Culture - Final NO BETA STREP GROUP A ISOLATED. Most Recent Lab Values WBC 7.2 K/uL (4.8-10.8) 06/18/17 05:10 RBC 2.96 Mil/uL (3.80-5.20) L 06/18/17 05:10 Hgb 9.0 g/dL (12.0-16.0) L 06/18/17 05:10 Hct 27.8 % (34.0-47.0) L 06/18/17 05:10 MCV 94.1 fl (81.0-99.0) 06/18/17 05:10 MCH 30.5 pg (27.0-31.0) 06/18/17 05:10 MCHC 32.5 g/dL (33.0-37.0) L 06/18/17 05:10 RDW 15.1 % (11.5-14.5) H 06/18/17 05:10 Plt Count 365 K/uL (130-400) 06/18/17 05:10 MPV 9.9 fl (7.2-11.7) 06/18/17 05:10 Neut % (Auto) 66.8 % (50.0-75.0) 06/18/17 05:10 Lymph % (Auto) 22.8 % (20.0-40.0) 06/18/17 05:10 Gibson % (Auto) 8.0 % (0.0-10.0) 06/18/17 05:10 Eos % (Auto) 2.1 % (0.0-4.0) 06/18/17 05:10 Baso % (Auto) 0.3 % (0.0-2.0) 06/18/17 05:10 Neut # 4.8 K/uL (1.8-7.0) 06/18/17 05:10 Lymph # 1.6 K/uL (1.0-4.3) 06/18/17 05:10 Gibson # 0.6 K/uL (0.0-0.8) 06/18/17 05:10 Eos # 0.2 K/uL (0.0-0.7) 06/18/17 05:10 Baso # 0.0 K/uL (0.0-0.2) 06/18/17 05:10 Neutrophils % (Manual) 85 % (42-75) H 06/16/17 05:30 Band Neutrophils % 2 % (0-2) 06/16/17 05:30 Lymphocytes % (Manual) 7 % (20-50) L 06/16/17 05:30 Monocytes % (Manual) 5 % (0-10) 06/16/17 05:30 Eosinophils % (Manual) 1 % (0-7) 06/16/17 05:30 Platelet Estimate Normal (NORMAL) 06/16/17 05:30 Large Platelets Present 06/16/17 05:30 Hypochromasia (manual) Slight 06/16/17 05:30 Poikilocytosis (manual Slight 06/16/17 05:30 Anisocytosis (manual) Moderate 06/16/17 05:30 Tear Drop Cells Slight 06/16/17 05:30 PT 14.6 Seconds (9.8-13.1) H 06/15/17 21:01 INR 1.3 (0.9-1.2) H 06/15/17 21:01 APTT 30.4 Seconds (25.6-37.1) 06/15/17 21:01 pO2 25 mm/Hg (30-55) L 06/15/17 20:53 VBG pH 7.51 (7.32-7.43) H 06/15/17 20:53 VBG pCO2 32 mmHg (40-60) L 06/15/17 20:53 VBG HCO3 26.1 mmol/L 06/15/17 20:53 VBG Total CO2 26.5 mmol/L (22-28) 06/15/17 20:53 VBG O2 Sat (Calc) 58.3 % (40-65) 06/15/17 20:53 VBG Base Excess 3.0 mmol/L (0.0-2.0) H 06/15/17 20:53 VBG Potassium 3.4 mmol/L (3.6-5.2) L 06/15/17 20:53 Sodium 130.0 mmol/L (132-148) L 06/15/17 20:53 Chloride 98.0 mmol/L (98-107) 06/15/17 20:53 Glucose 134 mg/dL (65-105) H 06/15/17 20:53 Lactate 1.1 mmol/L (0.7-2.1) 06/15/17 20:53 FiO2 21.0 % 06/15/17 20:53 Sodium 142 mmol/l (132-148) 06/18/17 05:10 Potassium 3.6 MMOL/L (3.6-5.0) 06/18/17 05:10 Chloride 111 mmol/L (98-107) H 06/18/17 05:10 Carbon Dioxide 24 mmol/L (22-30) 06/18/17 05:10 Anion Gap 11 (10-20) 06/18/17 05:10 BUN 5 mg/dl (7-17) L 06/18/17 05:10 Creatinine 0.6 mg/dL (0.7-1.2) L 06/18/17 05:10 Est GFR ( Amer) > 60 06/18/17 05:10 Est GFR (Non-Af Amer) > 60 06/18/17 05:10 Random Glucose 99 mg/dL (65-105) 06/18/17 05:10 Calcium 9.0 mg/dL (8.4-10.2) 06/18/17 05:10 Phosphorus 1.9 mg/dl (2.5-4.5) L 06/15/17 21:01 Magnesium 2.3 MG/DL (1.6-2.3) 06/15/17 21:01 Total Bilirubin 0.1 mg/dl (0.2-1.3) L 06/18/17 05:10 GGT 281 U/L (8-78) H 06/17/17 05:30 AST 72 U/L (14-36) H D 06/18/17 05:10 ALT 145 U/L (9-52) H 06/18/17 05:10 Alkaline Phosphatase 162 U/L (38-126) H 06/18/17 05:10 Total Creatine Kinase 41 U/L (30-135) 06/15/17 21:01 Total Protein 6.3 G/DL (6.3-8.2) 06/18/17 05:10 Albumin 2.9 g/dL (3.5-5.0) L 06/18/17 05:10 Globulin 3.4 gm/dL (2.2-3.9) 06/18/17 05:10 Albumin/Globulin Ratio 0.9 (1.0-2.1) L 06/18/17 05:10 Lipase 88 U/L (23-300) 06/17/17 05:30 Venous Blood Potassium 3.4 mmol/L (3.6-5.2) L 06/15/17 20:53 Urine Color Mary Jo (YELLOW) 06/15/17 21:01 Urine Clarity Cloudy (Clear) 06/15/17 21:01 Urine pH 6.0 (5.0-8.0) 06/15/17 21:01 Ur Specific Amma 1.015 (1.003-1.030) 06/15/17 21:01 Urine Protein 30 mg/dL (NEGATIVE) 06/15/17 21:01 Urine Glucose (UA) Neg mg/dL (Normal) 06/15/17 21:01 Urine Ketones Negative mg/dL (NEGATIVE) 06/15/17 21:01 Urine Blood Moderate (NEGATIVE) 06/15/17 21:01 Urine Nitrate Positive (NEGATIVE) H 06/15/17 21:01 Urine Bilirubin Negative (NEGATIVE) 06/15/17 21:01 Urine Urobilinogen 4.0 mg/dL (0.2-1.0) H 06/15/17 21:01 Ur Leukocyte Esterase Large Lianet/uL (Negative) 06/15/17 21:01 Urine RBC (Auto) 15 /hpf (0-3) H 06/15/17 21:01 Urine Microscopic WBC 100 /hpf (0-5) H 06/15/17 21:01 Ur Squamous Epith Cells 4 /hpf (0-5) 06/15/17 21:01 Urine Bacteria Many (<OCC) H 06/15/17 21:01 Urine Yeast (Budding) Occ /hpf (NEGATIVE) H 06/15/17 21:01 Hepatitis A IgM Ab Negative (NEGATIVE) 06/16/17 05:30 Hep Bs Antigen Negative (NEGATIVE) 06/16/17 05:30 Hep B Core IgM Ab Negative (NEGATIVE) 06/16/17 05:30 Hepatitis C Antibody Negative (NEGATIVE) 06/16/17 05:30 Infectious Gibson Assay Negative (NEGATIVE) 06/15/17 21:01 Influenza Typ A,B (EIA) Negative for flu a/b (NEGATIVE) 06/15/17 21:01 Grp A Beta Strep Ag Negative (NEGATIVE) 06/15/17 21:01 Blood Type A POSITIVE 06/15/17 20:45 Antibody Screen Negative 06/15/17 20:45 BBK History Checked Patient has bt 06/15/17 20:45 Discharge Exam - Head Exam Head Exam: ATRAUMATIC, NORMAL INSPECTION, NORMOCEPHALIC - Eye Exam Eye Exam: EOMI, Normal appearance, PERRL Pupil Exam: NORMAL ACCOMODATION, PERRL - Respiratory Exam Respiratory Exam: Clear to PA & Lateral, NORMAL BREATHING PATTERN, UNREMARKABLE - Cardiovascular Exam Cardiovascular Exam: REGULAR RHYTHM, RRR, +S1, +S2 - GI/Abdominal Exam GI & Abdominal Exam: Normal Bowel Sounds, Soft, Unremarkable - Extremities Exam Extremities exam: full ROM, normal capillary refill, normal inspection, pedal pulses present - Neurological Exam Neurological exam: Alert, CN II-XII Intact, Normal Gait, Oriented x3, Reflexes Normal - Psychiatric Exam Psychiatric exam: Normal Affect, Normal Mood - Skin Skin Exam: Dry, Intact, Normal Color, Warm Discharge Plan - Discharge Medications Prescriptions: Nitrofurantoin Macrocrystals [Macrobid] 100 mg PO BID #20 cap Nitrofurantoin Macrocrystals [Macrobid] 100 mg PO BID #20 cap Tamsulosin [Flomax] 0.4 mg PO DAILY #7 cap Tamsulosin [Flomax] 0.4 mg PO DAILY #7 cap - Follow Up Plan Condition: STABLE Disposition: HOME/ ROUTINE Instructions: Urinary Tract Infection in Women (DC), Acute Pyelonephritis (DC) Additional Instructions: follow up with [facility] in 2 days. final dx pyelonephritis, elev lft f/u gi/uro outpt no comlaints/distress . nof/c, n/v/d e coli in urine, sensitive to macrobid Referrals: Williams Bañuelos MD [Staff Provider] - Lianet Ross MD [Medical Doctor] - Flynn Barnett MD, PhD [Staff Provider] -
[2017-06-20 14:07] VITALS: O2SAT 100
== END 2017-06-18 11:12 | disposition home or self-care (01) | DRG 872 ==
LOC: H.ER 19:04 → H.ERHOLD 22:26 → H.MEDSURG1 23:19 → OBSVTOIN 06-16 19:35
PROVIDERS: ADMIT Family Medicine; ATTEND Family Medicine
DX: A41.9 Sepsis, unspecified organism (principal); K76.0 Fatty (change of) liver, not elsewhere classified; N13.6 Pyonephrosis; B96.20 Unspecified Escherichia coli [E. coli] as the cause of diseases classified elsewhere; E66.3 Overweight; Z68.31 Body mass index [BMI] 31.0-31.9, adult; Z88.2 Allergy status to sulfonamides; F17.210 Nicotine dependence, cigarettes, uncomplicated; R79.89 Other specified abnormal findings of blood chemistry